=== PATIENT | male | born 1975 | race Caucasian/White ===

== ENCOUNTER 2021-08-14 15:14 | Emergency (ER) | payer OTHER ==
[2021-08-14 15:37] VITALS: BP 130/84; PULSE 89; RESP 20; TEMP 98
--- NOTE | 2021-08-14 16:00 | XR ---
EXAMINATION TYPE: XR chest 2V DATE OF EXAM: 08/14/2021 COMPARISON: NONE HISTORY: Chest pain TECHNIQUE: Frontal and lateral views of the chest are obtained. FINDINGS: There is no focal air space opacity, pleural effusion, or pneumothorax seen. The cardiac silhouette size is within normal limits. There is prominence of the lung volume and interstitium. Q uestion some bronchial wall thickening. The osseous structures are intact. IMPRESSION: There may be some underlying interstitial lung disease, correlate for bronchitis, reacti ve airways disease
[2021-08-14 16:01] LABS: Basophils # (A) 0.1 k/uL (0-0.2); Basophils % (A) 0 %; Eosinophils # (A) 0.4 k/uL (0-0.7); Eosinophils % (A) 3 %; HCT 51.2 % (39.0-53.0); HGB 17.3 gm/dL (13.0-17.5); Lymphocytes % (A) 15 %; MCH 29.8 pg (25.0-35.0); MCHC 33.8 g/dL (31.0-37.0); MCV 88.1 fL (80.0-100.0); Mean Platelet Volume 7.4; Monocytes # (A) 0.5 k/uL (0-1.0); Monocytes % (A) 3 %; Neutrophils # (A) 10.9 k/uL (1.3-7.7); Neutrophils % (A) 78 %; Platelet Count 274 k/uL (150-450); RBC 5.81 m/uL (4.30-5.90); RDW 14.2 % (11.5-15.5); WBC 13.9 k/uL (3.8-10.6)
--- NOTE | 2021-08-14 16:09 | ED ---
General Adult HPI - General Chief complaint: Chest Pain Stated complaint: Chest Pain,L arm pain Time Seen by Provider: 08/14/21 15:54 Source: patient, family, RN notes reviewed, old records reviewed Mode of arrival: ambulatory Limitations: no limitations - History of Present Illness Initial comments: 45-year-old male presenting for evaluation of multiple complaints. His main complaints are intermittent chest pain, left arm pain and associated numbness over the past one month. The symptoms began after the patient's son . He's been dealing with multiple issues related to this including some financial difficulties as well as she will planning. He does admit that he's anxious and believes that his symptoms are stemming from him his anxiety. He feels depressed and hopeless. He is not suicidal. He denies suicidal thoughts or suicide attempt - Related Data Home Medications Medication Instructions Recorded Confirmed ALPRAZolam [Xanax] 0.5 mg PO DAILY PRN 08/14/21 08/14/21 Testosterone 1 pump TOPICAL DAILY 08/14/21 08/14/21 Allergies Allergy/AdvReac Type Severity Reaction Status Date / Time No Known Allergies Allergy Verified 08/14/21 16:32 Review of Systems ROS Statement: Those systems with pertinent positive or pertinent negative responses have been documented in the HPI. ROS Other: All systems not noted in ROS Statement are negative. Past Medical History History of Any Multi-Drug Resistant Organisms: None Reported Past Surgical History: Tonsillectomy Past Psychological History: No Psychological Hx Reported Smoking Status: Current every day smoker Past Alcohol Use History: Occasional Past Drug Use History: None Reported General Exam Limitations: no limitations General appearance: alert, in no apparent distress Head exam: Present: atraumatic, normocephalic Eye exam: Present: normal appearance, PERRL ENT exam: Present: normal exam Neck exam: Present: normal inspection. Absent: tenderness Respiratory exam: Present: normal lung sounds bilaterally. Absent: respiratory distress, wheezes Cardiovascular Exam: Present: regular rate, normal rhythm GI/Abdominal exam: Present: soft. Absent: distended, tenderness, guarding Extremities exam: Present: normal inspection, normal capillary refill. Absent: pedal edema Neurological exam: Present: alert, oriented X3, CN II-XII intact, other (No weakness, NIH is 0). Absent: motor sensory deficit Psychiatric exam: Present: depressed, flat affect. Absent: suicidal ideation Skin exam: Present: warm, dry, intact. Absent: cyanosis, diaphoretic Course Vital Signs 08/14/21 15:27 Temperature 98.0 F Pulse Rate 89 Respiratory 20 Rate Blood Pressure 130/84 O2 Sat by Pulse 97 Oximetry - Reevaluation(s) Reevaluation #1: 08/14/21 16:57 Patient cleared for EPS. EKG Findings - EKG Comments: EKG Findings:: EKG: Normal sinus rhythm incomplete right bundle-branch block, rate of 86, OK interval 154, QRS duration 102, QTC [address] segment elevation. Medical Decision Making - Medical Decision Making 45-year-old male who had presented with several complaints over the past month. He feels that these are related to depression and anxiety. Workup is complaints including chest pain and her been arm numbness. Head CT is negative, chest x-ray negative for large focal pneumonia or acute findings, possibly some bronchitis. He has a mild leukocytosis, stable hemoglobin, normal electrolytes, negative troponin. His head CT is negative for intracranial hemorrhage or mass effect. I did have EPS evaluated this patient and he is not currently suicidal. He does agree to outpatient resources and contracts to safety. - Lab Data Result diagrams: 08/14/21 15:53 08/14/21 15:53 Lab Results 08/14/21 08/14/21 08/14/21 Range/Units 15:53 15:53 15:53 WBC 13.9 H (3.8-10.6) k/uL RBC 5.81 (4.30-5.90) m/uL Hgb 17.3 (13.0-17.5) gm/dL Hct 51.2 (39.0-53.0) % MCV 88.1 (80.0-100.0) fL MCH 29.8 (25.0-35.0) pg MCHC 33.8 (31.0-37.0) g/dL RDW 14.2 (11.5-15.5) % Plt Count 274 (150-450) k/uL MPV 7.4 Neutrophils % 78 % Lymphocytes % 15 % Monocytes % 3 % Eosinophils % 3 % Basophils % 0 % Neutrophils # 10.9 H (1.3-7.7) k/uL Lymphocytes # 2.0 (1.0-4.8) k/uL Monocytes # 0.5 (0-1.0) k/uL Eosinophils # 0.4 (0-0.7) k/uL Basophils # 0.1 (0-0.2) k/uL PT 10.0 (9.0-12.0) sec INR 0.9 (<1.2) APTT 23.4 (22.0-30.0) sec Sodium 139 (137-145) mmol/L Potassium 4.5 (3.5-5.1) mmol/L Chloride 110 H (98-107) mmol/L Carbon Dioxide 22 (22-30) mmol/L Anion Gap 7 mmol/L BUN 14 (9-20) mg/dL Creatinine 1.03 (0.66-1.25) mg/dL Est GFR (CKD-EPI)AfAm >90 (>60 ml/min/1.73 sqM) Est GFR (CKD-EPI)NonAf 87 (>60 ml/min/1.73 sqM) Glucose 84 (74-99) mg/dL Calcium 10.0 (8.4-10.2) mg/dL Magnesium 2.3 (1.6-2.3) mg/dL Total Bilirubin 0.6 (0.2-1.3) mg/dL AST 25 (17-59) U/L ALT 24 (4-49) U/L Alkaline Phosphatase 75 (38-126) U/L Troponin I (0.000-0.034) ng/mL Total Protein 7.0 (6.3-8.2) g/dL Albumin 4.3 (3.5-5.0) g/dL 08/14/21 Range/Units 15:53 WBC (3.8-10.6) k/uL RBC (4.30-5.90) m/uL Hgb (13.0-17.5) gm/dL Hct (39.0-53.0) % MCV (80.0-100.0) fL MCH (25.0-35.0) pg MCHC (31.0-37.0) g/dL RDW (11.5-15.5) % Plt Count (150-450) k/uL MPV Neutrophils % % Lymphocytes % % Monocytes % % Eosinophils % % Basophils % % Neutrophils # (1.3-7.7) k/uL Lymphocytes # (1.0-4.8) k/uL Monocytes # (0-1.0) k/uL Eosinophils # (0-0.7) k/uL Basophils # (0-0.2) k/uL PT (9.0-12.0) sec INR (<1.2) APTT (22.0-30.0) sec Sodium (137-145) mmol/L Potassium (3.5-5.1) mmol/L Chloride (98-107) mmol/L Carbon Dioxide (22-30) mmol/L Anion Gap mmol/L BUN (9-20) mg/dL Creatinine (0.66-1.25) mg/dL Est GFR (CKD-EPI)AfAm (>60 ml/min/1.73 sqM) Est GFR (CKD-EPI)NonAf (>60 ml/min/1.73 sqM) Glucose (74-99) mg/dL Calcium (8.4-10.2) mg/dL Magnesium (1.6-2.3) mg/dL Total Bilirubin (0.2-1.3) mg/dL AST (17-59) U/L ALT (4-49) U/L Alkaline Phosphatase (38-126) U/L Troponin I <0.012 (0.000-0.034) ng/mL Total Protein (6.3-8.2) g/dL Albumin (3.5-5.0) g/dL Disposition Clinical Impression: Stress reaction, Depression Disposition: HOME SELF-CARE Condition: Good Instructions (If sedation given, give patient instructions): Depression (ED) Is patient prescribed a controlled substance at d/c from ED?: No Referrals: None,Stated [Primary Care Provider] - 1-2 days Time of Disposition: 18:41
[2021-08-14 16:10] LABS: ALT 24 U/L (4-49); AST 25 U/L (17-59); African American GFR (CKD) >90 (>60 ml/min/1.73 sqM); Albumin 4.3 g/dL (3.5-5.0); Alkaline Phosphatase 75 U/L (38-126); Anion Gap 7 mmol/L; Blood Urea Nitrogen 14 mg/dL (9-20); Carbon Dioxide 22 mmol/L (22-30); Chloride 110 mmol/L (98-107); Glucose 84 mg/dL (74-99); Magnesium 2.3 mg/dL (1.6-2.3); Non-African American GFR(CKD) 87 (>60 ml/min/1.73 sqM); Potassium 4.5 mmol/L (3.5-5.1); Sodium 139 mmol/L (137-145); Total Bilirubin 0.6 mg/dL (0.2-1.3)
[2021-08-14 16:12] LABS: INR 0.9 (<1.2); Partial Thromboplastin Time 23.4 sec (22.0-30.0)
--- NOTE | 2021-08-14 16:31 | CT ---
EXAMINATION TYPE: CT brain wo con DATE OF EXAM: 08/14/2021 COMPARISON: None INDICATION: Left sided arm weakness and chest discomfort DLP: 1129.4 mGycm, Automated exposure control for dose reduction was used. CONTRAST: None CT of the brain is performed utilizing 3 mm thick sections through the posterior fossa and 3 mm thick sections through the remaining calvarium. Study is performed within 24 hours of arrival to the hosp ital. No abnormal hyperdensity is present to suggest an acute intracranial hemorrhage. No mass lesion is evident. No acute infarcts are evident. Ventricles and sulci are appropriate for the patient age. A retention cyst may be within the right maxillary sinus. Minimal mucosal thickening in the left maxi llary sinus. Mild mucosal thickening in anterior ethmoid air cells. A retention cyst is along the pos terior sphenoid sinus. Remaining paranasal sinuses and mastoid air cells are clear. IMPRESSIONS: 1. No acute intracranial process. 2. Mucosal thickening within paranasal sinuses discussed above.
== END 2021-08-14 18:58 | disposition home or self-care (01) ==
LOC: EC 15:14
DX: F43.9 Reaction to severe stress, unspecified (principal); F32.9 Major depressive disorder, single episode, unspecified; F17.200 Nicotine dependence, unspecified, uncomplicated; Z90.89 Acquired absence of other organs
CPT/HCPCS: 36415; 70450; 71046; 80053; 82075; 83735; 84484; 85025; 85610; 85730; 93005; 99285

== ENCOUNTER 2021-11-03 23:27 | Emergency (ER) | payer OTHER ==
[2021-11-03 23:33] VITALS: BP 125/86; PULSE 103; RESP 20; TEMP 98.3
[2021-11-04] MEDS ORDERED: SODIUM CHLORIDE 0.9% 50 ML IVPB ONE (00:15)
--- NOTE | 2021-11-04 00:22 | ED ---
URI HPI - General Chief Complaint: Upper Respiratory Infection Stated Complaint: JOAQUÍN, Covid+ Time Seen by Provider: 11/03/21 23:38 Source: patient, RN notes reviewed Mode of arrival: ambulatory Limitations: no limitations - History of Present Illness Initial Comments: patient is a 45-year-old male that presents to the emergency department Covid-positive for the past 5 days. He notes his had symptoms for 5 days tested +3 days ago. He notes he wants monoclonal antibodies. He notes he is having some cough. He denied any other issues or complaints. He does have a history of COPD. He denied chest pain headache nausea vomiting diarrhea constipation fever fatigue chills. - Related Data Home Medications Medication Instructions Recorded Confirmed ALPRAZolam [Xanax] 0.5 mg PO DAILY PRN 08/14/21 08/14/21 Testosterone 1 pump TOPICAL DAILY 08/14/21 08/14/21 Allergies Allergy/AdvReac Type Severity Reaction Status Date / Time No Known Allergies Allergy Verified 11/03/21 23:29 Review of Systems ROS Statement: Those systems with pertinent positive or pertinent negative responses have been documented in the HPI. ROS Other: All systems not noted in ROS Statement are negative. Past Medical History Past Medical History: COPD History of Any Multi-Drug Resistant Organisms: None Reported Past Surgical History: Tonsillectomy Past Psychological History: No Psychological Hx Reported Smoking Status: Current every day smoker Past Alcohol Use History: Occasional Past Drug Use History: None Reported General Exam Limitations: no limitations General appearance: alert, in no apparent distress Head exam: Present: atraumatic, normocephalic, normal inspection Eye exam: Present: normal appearance, PERRL, EOMI. Absent: scleral icterus, conjunctival injection, periorbital swelling ENT exam: Present: normal exam, mucous membranes moist Neck exam: Present: normal inspection Respiratory exam: Present: normal lung sounds bilaterally. Absent: respiratory distress, wheezes, rales, rhonchi, stridor Cardiovascular Exam: Present: regular rate, normal rhythm, normal heart sounds. Absent: systolic murmur, diastolic murmur, rubs, gallop, clicks GI/Abdominal exam: Present: soft, normal bowel sounds. Absent: distended, tenderness, guarding, rebound, rigid Extremities exam: Present: normal inspection, full ROM, normal capillary refill. Absent: tenderness, pedal edema, joint swelling, calf tenderness Neurological exam: Present: alert, oriented X3 Psychiatric exam: Present: normal affect, normal mood Skin exam: Present: warm, dry, intact, normal color. Absent: rash Course Vital Signs 11/03/21 23:29 Temperature 98.3 F Pulse Rate 103 H Respiratory 20 Rate Blood Pressure 125/86 O2 Sat by Pulse 99 Oximetry Medical Decision Making - Medical Decision Making 45 -year-oldmale Covid-positive wanting monoclonal advised. He does meet criteria to have a history of COPD. Patient is agreeable discharge home after infusion. Case discussed with Dr. Mccarthy, patient discharge home. Disposition Clinical Impression: COVID Disposition: HOME SELF-CARE Condition: Stable Instructions (If sedation given, give patient instructions): Coronavirus Disease 2019 (COVID-19) Additional Instructions: Please return to the Emergency Department if symptoms worsen or any other concerns. Is patient prescribed a controlled substance at d/c from ED?: No Referrals: Nonstaff,Physician [Primary Care Provider] - 1-2 days Time of Disposition: 00:22
[2021-11-04] MEDS ORDERED: BAMLANIVIMAB (EUA) 700 MG, ETESEVIMAB (EUA) 1,400 MG in SODIUM CHLORIDE 0.9% 100 ML IVPB ONE (00:30)
== END 2021-11-04 01:38 | disposition home or self-care (01) ==
LOC: EC 23:27
DX: U07.1 COVID-19 (principal); J44.9 Chronic obstructive pulmonary disease, unspecified; F17.200 Nicotine dependence, unspecified, uncomplicated
CPT/HCPCS: 99283; M0245

== ENCOUNTER 2025-01-07 13:31 | Inpatient (IN) | payer MEDICAID ==
[2025-01-07] MEDS ORDERED: LORazepam 2 MG/ML INJ IM PRN (13:50)
[2025-01-07] MEDS ORDERED: HALOPERIDOL LACTATE 5 MG/ML 1 ML VIAL IM PRN (13:50)
[2025-01-07] MEDS ORDERED: MAGNESIUM HYDROXIDE 2,400 MG/30 ML CUP PO PRN (13:50)
[2025-01-07] MEDS: MAG HYDROX/AL HYDROX/SIMETH 355 ML BOTTLE PO PRN (17:18)
[2025-01-07] MEDS: ACETAMINOPHEN TAB 325 MG TAB PO PRN (17:19)
[2025-01-07] MEDS: LORazepam 1 MG TAB PO PRN (17:25)
[2025-01-07] MEDS: haloperidoL 5 MG TAB PO PRN (17:25)
[2025-01-07] MEDS: LISINOPRIL-HCTZ 10-12.5 MG 1 EACH TAB PO SCH (21:54)
[2025-01-07] MEDS: OLANZapine 5 MG TAB PO SCH (21:54)
[2025-01-07] MEDS: SYMBICORT 80-4.5 MCG INHALER INHALATION SCH (21:54)
[2025-01-08] MEDS: NICOTINE 14MG/24HR PATCH TRANSDERM SCH (09:26)
--- NOTE | 2025-01-08 13:58 | P.HP ---
Psychiatric H&P - . H&P Date: 01/08/25 History & Physical: Allergies Allergy/AdvReac Type Severity Reaction Status Date / Time No Known Allergies Allergy Verified 11/03/21 23:29 Vital Signs Temp 97.1 F L 01/08/25 09:58 Pulse 83 01/08/25 09:58 Resp 20 01/08/25 09:58 BP 106/67 01/08/25 09:58 Pulse Ox 97 01/07/25 22:58 FiO2 Intake & Output 01/07/25 01/08/25 01/08/25 18:59 06:59 18:59 Weight 89.358 kg 01/08/25 11:44 the patient came in with a petition and certification by his daughter. The daughter says "my dad is threatened to kill himself along with his ex- girlfriend. He has arrested me and my brother via phone for the past 3 months. He is homeless and a huge danger to himself and others. He has suicidal thoughts kill threats harassment. His ex-girlfriend has appeared by mouth on him in [place] then there is a certain that says patient's daughter reports patient been telling family his going to kill himself and then observed patient labile no other observations from the doctor. the chart records thatpatient was found to have a machete and a gun in his car which he says was for self protection.family members and others to present evidence of emails that were threatening. Subjective the patient says that he is a man of [place] and although all he has not found a anabaptism to attend in [place] he does watch his anabaptism services on his phone from [place]. He says God would not let him kill himself or hurt a nyone else. He admits that he is depressed about his son who at age 19. The son was hit head-on in a car accident. But the patient points out that it has been 2 years and he has been improving his ability to deal with. He says he takes Prozac which was increased from 20-40 about 2 months ago he believes that has helped. He also takes olanzapine 5 mg a positive about its contribution to helping him with his moods he has an outpatient doctor established and is willing to keep taking the medications. He says yes he has been staying in his car but he has a friend that he can go and stay with them until he can get on his feet. 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 He denies a use of any alcohol or drugs he admits to smoking some cigarettes but says he has cut way back and that. He denies now or in the past any hallucinations or any visual or auditory hallucinations or delusions. He denies any manic episodes. Social history the patient says that he is oldest of 2 boys born to his parents his younger brother who is doing well says his parents stayed together although there were somewhat troubled mom at age 44 cancer and dad have some heart problems and his castaneda. The patient says that he had a normal and early development as far as his mom said that he finished 12th grade and now is working on his CDL is no history no legal history. He was for 10 years and had 2 children with her a 26-year-old and then the son who he said his became with a neighbor and yes it still upsets him he also is a 29-year-old daughter with 3 children who is doing well. Mental status exam the patient is alert and cooperative somewhat somatically focused on feeling dizzy. He does not want to be here and says he doesn't feel that he needs to be in a psychiatric unit. He says that any parent would sometimes voice the thought that if something did happen and if they it would be nice to see their lost relative. He denies any thoughts or plans of making that happen on his own. He denies talking to his daughter in the last 3 months but admits to leaving messages. At the same time his affect breaks into tearfulness when he talks about his son and his moods are labile He could remember 3 of 3 objects after 5 minutes. His general information is well above average he could name the presidents back to the elder Gilli[place]. He could name all the [place] and had a good idea where they were. Cats and snakes he has are sneaky and they shed, he could not subtract 7 from 93 he got 88 and he could not spell world backwards we has some trouble with concentration he tried going got DL ORW. Abstract is okay he abstracted the proverb a ggressive screen and outside offense by saying make improvements in your own area. Self-care is adequate eye contact is good he does tear up when he is talking about his son. His alert oriented to person place time and circumstances. He was sitting in a wheelchair due to the dizziness. There is no evidence of psychosis he did not seem to be responding to voices. He was not agitated or aggressive. Assessment: diagnosis major depression recurrent severe nonpsychotic. At this point in examining the patientexamining the chart and talking to people who evaluated him.there seems to be a big discrepancy between his report and what others say. But their report combined with his emotional lability suggests that he is a danger to himself and others. Plan: because of the gun in the car the email threats reported by daughter and ex- and other people that know him and emotional lability I think we need to keep him in the hospital and observe at least briefly and then taken to court to have them decide. If he goes to group remains calm and we can contact support people but this point I think it would be too dangerous. We will continue the Prozac and the Zyprexa.
[2025-01-08] MEDS: PANTOPRAZOLE 40 MG TABLET PO SCH (14:48)
--- NOTE | 2025-01-08 14:53 | XR ---
EXAMINATION TYPE: XR abdomen acute w cxr DATE OF EXAM: 01/08/2025 2:46 PM CLINICAL INDICATION: Male, 49 years old with history of left upper quadrant pain, and reports felt a pop; H COMPARISON: Chest 08/14/2021. TECHNIQUE: Two radiographic views of the abdomen (upright and supine) and a frontal chest radiograph were obtained. FINDINGS CHEST: Lungs/Pleura: The lungs are clear. There is no evidence of pleural effusion, focal consolidation or p neumothorax. Mediastinum: Unremarkable. Vasculature: Normal. Heart: Normal in size. Musculoskeletal: The osseous structures are intact. Other findings: No significant. FINDINGS ABDOMEN: Bowel gas pattern: Normal without dilated loops of small or large bowel. Moderate volume fecal materi al and gas are demonstrated throughout the colon and rectum. Abnormal calcifications: None. Musculoskeletal: Normal. Other: None. IMPRESSION: 1. No radiographic evidence for acute abdominal process. Moderate diffuse colonic stool burden. 2. No acute cardiopulmonary process [facility], Workstation: [email or web address], 01/08/2025 2:51 PM
[2025-01-08] MEDS: ALBUTEROL INHALER 60 PUFF/8 GM INHALER (MHU) INHALATION PRN (15:51)
[2025-01-08] MEDS: IBUPROFEN 600 MG TAB PO PRN (22:46)
[2025-01-08] MEDS ORDERED: LACTULOSE 20 GM/30 ML CUP PO PRN (23:46)
--- NOTE | 2025-01-08 23:59 | P.MDCNMH ---
History of Present Illness H&P Date: 01/08/25 This is a pleasant 49-year-old male who presented to the emergency department on petition from daughter with concerns of being a threat to himself or others. Patient was noted to have a machete and a gun in his vehicle of which he reports was for his own safety. Patient has been making comments and threats per family about wanting to kill himself. On exam patient denies this and does elicit that he is depressed. Patient is admitted to [facility] for further psychiatric evaluation. Patient reports he follows with Dr. Smith in the outpatient setting with a past medical history of COPD, depression, hypertension, anxiety. Patient is a former smoker and denies any other illicit drug use or alcohol use. On exam patient is reporting severe left upper quadrant abdominal pain. Concerns for constipation and will order abdominal x-ray for further evaluation. REVIEW OF SYSTEMS: CONSTITUTIONAL: No fever, no malaise, no fatigue. HEENT: No recent visual problems or hearing problems. Denied any sore throat. CARDIOVASCULAR: No chest pain, orthopnea, PND, no palpitations, no syncope. PULMONARY: No shortness of breath, no cough, no hemoptysis. GASTROINTESTINAL: No diarrhea, no nausea, no vomiting, reports significant abdominal pain. NEUROLOGICAL: No headaches, no weakness, no numbness. HEMATOLOGICAL: Denies any bleeding or petechiae. GENITOURINARY: Denies any burning micturition, frequency, or urgency. MUSCULOSKELETAL/RHEUMATOLOGICAL: Denies any joint pain, swelling, or any muscle pain. ENDOCRINE: Denies any polyuria or polydipsia. The rest of the 14-point review of systems is negative. PHYSICAL EXAMINATION: GENERAL: The patient is alert and oriented x3, appears to be in mild acute distress due to abdominal discomfort. Well developed, well nourished. Appears older than stated age HEENT: Pupils are round and equally reacting to light. EOMI. No scleral icterus. No conjunctival pallor. Normocephalic, atraumatic. No pharyngeal erythema. No thyromegaly. CARDIOVASCULAR: S1 and S2 present. No murmurs, rubs, or gallops. PULMONARY: Diminished breath sounds bilaterally otherwise chest is clear to auscultation, no wheezing or crackles. ABDOMEN: Soft, left upper quadrant tenderness noted, nondistended, normoactive bowel sounds. No palpable organomegaly. MUSCULOSKELETAL: No joint swelling or deformity. EXTREMITIES: No cyanosis, clubbing, or pedal edema. NEUROLOGICAL: Gross neurological examination did not reveal any focal deficits. SKIN: No rashes. Assessment: Depression with suicidal ideation on petition History of asthma/COPD, not in exacerbation Abdominal pain, imaging reports some moderate stool burden, likely secondary to constipation Former smoker History of hypertension History of anxiety/depression GI prophylaxis Full code Plan: Patient was petitioned and admitted to [facility] for further psychiatric evaluation as patient was petition by family reporting he is not safe to himself or others and has made multiple comments to them about killing himself and also threatening comments. Patient denies these and denies any suicidal ideation. Patient reports he is severely depressed but does not want to kill himself Patient instructed to be compliant with medications along with therapy sessions and psychiatric evaluation Patient instructed to follow-up with his primary care provider in the outpatient setting Patient having severe abdominal pain in the left upper quadrant, x-ray obtained showing no acute cardiopulmonary process and moderate stool burden of the abdomen. Will add Senokot and also lactulose as needed and recommend bowel regimen Encouraged increase activity as tolerated The impression and plan of care has been dictated by Gladys Bright, Nurse Practitioner as directed. Dr. Lucrecia MD I have performed a history and examination and MDM of this patient, discussed the same with the dictator, and agree with the dictator's assessment and plan as written ,documented as a scribe. Based on total visit time, I have performed more than 50% of the visit. Past Medical History Past Medical History: Asthma, COPD, Hypertension History of Any Multi-Drug Resistant Organisms: None Reported Past Surgical History: Tonsillectomy Past Anesthesia/Blood Transfusion Reactions: No Reported Reaction Smoking Status: Former smoker Medications and Allergies Home Medications Medication Instructions Recorded Confirmed Type FLUoxetine HCL [PROzac] 40 mg PO HS 01/07/25 01/07/25 History Fluticasone Propion/Salmeterol 1 puff INHALATION BID 01/07/25 01/07/25 History [Advair 250-50 Diskus] Lisinopril-Hctz 10-12.5 mg 1 tab PO HS 01/07/25 01/07/25 History [Zestoretic 10-12.5] OLANZapine [ZyPREXA] 5 mg PO HS 01/07/25 01/07/25 History Allergies Allergy/AdvReac Type Severity Reaction Status Date / Time No Known Allergies Allergy Verified 11/03/21 23:29 Physical Exam Vitals: Vital Signs Temp Pulse Resp BP Pulse Ox 01/07/25 22:58 97.7 F 98 14 110/74 97 01/07/25 14:43 97.9 F 103 H 14 119/79 99 Cranial Nerve Examination - Cranial Nerves Cranial Nerve I- Olfactory: Intact Cranial Nerve II- Optic: Intact Cranial Nerve III- Oculomotor: Intact Cranial Nerve IV- Trochlear: Intact Cranial Nerve V- Trigeminal: Intact Cranial Nerve - Abducens: Intact Cranial Nerve VII- Facial: Intact Cranial Nerve VIII- Auditory: Intact Cranial Nerve IX- Glossopharyngeal: Intact Cranial Nerve X- Vagus: Intact Cranial Nerve XI- Accessory: Intact Cranial Nerve XII- Hypoglossal: Intact
[2025-01-09] MEDS: SENNOSIDES 8.6 MG TAB PO SCH (09:29)
[2025-01-09] MEDS: FLUoxetine HCL 20 MG CAP PO SCH (09:29)
--- NOTE | 2025-01-09 10:20 | P.PN ---
Subjective Progress Note Date: 01/09/25 Principal diagnosis: major depression recurrent severe nonpsychotic the patient: The patient was seen lying in bed at 10:30 in the morning with a blanket over his head. He refused to get up and talk to me saying known time he wanted talk to somebody is if they were letting him be discharged. He said he didn't understand why he couldn't just leave. nursing staff report that he is withdrawn slow-moving uncooperative sad affect. Mental status exam the patient appears to have no insight into how other people would interpret his behavior. His affect is still sad and he is somewhat irritable no psychotic symptoms. He is uncooperative. I encouraged him to get out of bed goes on the groups and established that he was doing as well has he said he is. Energy is low. He denies now or in the past any hallucinations or any visual or auditory hallucinations or delusions. He denies any manic episodes.he denies any suicidality or homicidality Assessment: diagnosis major depression recurrent severe nonpsychotic.still quite depressed and lacking in insight. At this point in examining the patient, examining the chart and talking to people who evaluated him.there seems to be a big discrepancy between his report and what others say. But their report combined with his emotional lability suggests that he is a danger to himself and others. Plan: because of the gun in the car the email threats reported by daughter and ex-wifeand documented by staff and other people that know him and emotional lability I think we need to keep him in the hospital and observe at least briefly and then taken to court to have them decide. he has not responded in a rational way by going to the groups is I suggested and demonstrating that he is fine. We will continue the Prozac and the Zyprexa. Objective - Vital Signs Vital signs: Vital Signs Temp 97.9 F 01/08/25 22:44 Pulse 84 01/09/25 09:35 Resp 16 01/08/25 22:44 BP 108/68 01/09/25 09:35 Pulse Ox 97 01/08/25 22:44 FiO2
[2025-01-09] MEDS: NICOTINE GUM (POLACRILEX) 2 MG GUM BUCCAL PRN (13:58)
[2025-01-10 16:52] LABS: Chol/HDL Ratio 5.15 Ratio; LDL Cholesterol,Calculated 108.9 mg/dL (0.0-131.0)
--- NOTE | 2025-01-10 20:06 | P.PN ---
Progress Note - Text Progress Note Date: 01/10/25 Interval history: Patient was seen today in cross-coverage for Dr. Castrejon. Patient was found resting in bed with wheelchair at bedside and was agreeable to speak with this teletypewriter installer in his room. Today he claims his mood is "Great!", denies SI/HI intent or plan, denies AVH. He reports compliance with his medications and denies side effects. He is hopeful for discharge and asks repeatedly for discharge this evening, however we discussed discharge plans will need to be discussed with his primary team tomorrow. Review of chart shows he was intermittently agitated yesterday and required Haldol 5 mg po x 2 yesterday, and has not required any Haldol PRN for agitation so far today. He required Ativan 1 mg po x1 so far today for high anxiety, and required Ativan 1 mg po x 2 yesterday. Per chart, he has been sleeping through the night. Per nurse reports, he continues to be withdrawn and isolates to his room, does not interact with peers much. He has not attended groups today. He appears to be demonstrating defense mechanisms of denial and minimization, and appears to lack insight into the severity of his symptoms and the disconnect between his self-report and reports of staff regarding his withdrawn/isolative behaviors. Mental Status Exam: General Appearance: Patient appears to be stated age, seated on his bed with wheelchair at bedside, dressed incasual attire. Behavior: Patient appears eager to impress in hopes of discharge. He is fixated on discharge tonight. Speech: Patient's speech is fluent and non-pressured. Mood/Affect: Claims his mood is "great!", affect is congruent and constricted. Suicidality/Homicidality: Patient denies having any suicidal or homicidal ideation intent or plan. Perceptions: Patient denies any visual hallucinations and denies any auditory hallucinations. Though content/process: There is no evidence of any delusional thought content and thought process is fixated on discharge/anxious. Memory and concentration: AOX3, grossly intact for the purposes of this session Judgment and insight: Poor Assessment Major depressive disorder, severe without psychosis Plan: -Patient continues to meet criteria for inpatient psychiatric admission for symptom stabilization and safety. He is currently admitted on involuntary status and a second certification was submitted to the courts. -Medications: Continue Zyprexa 5mg QHS and Prozac 40 mg daily for depression and mood stabilization, and continue to monitor response. -When necessary Ativan and Haldol for agitation/aggression. -NRT - nicotine patch and gum -SW on board for discharge planning. Encourage the patient to participate in milieu. Will await court deferral hearing.
--- NOTE | 2025-01-11 13:52 | P.PN ---
Progress Note - Text Progress Note Date: 01/11/25 Interval history: Patient was seen today for psychiatric follow up. Patient was agreeable to be seen in the office today. Patient continues to appear to have a disheveled appearance poor hygiene and grooming. Claims that he is doing a bit better today with guards of his mood. He was minimizing his need for being in the hospital, claims that he did not say what was stated on the petition. Met with the state attorney today agreeable for treatment and medications. He was fairly focused on discharge today. 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 Claims that he is going to some groups. Has been eating fairly. Has been sleeping fairly well throughout the night. Denies any auditory or visual hallucinations denies any suicidal homicidal ideations intent or plan. Mental Status Exam: General Appearance: Patient appears to be stated age, seated on his bed with wheelchair at bedside, dressed incasual attire. Behavior: Patient appears eager to impress in hopes of discharge. He is fixated on discharge, minimizing Speech: Patient's speech is fluent and non-pressured. Mood/Affect: Claims his mood is "a bit better", affect is congruent and constricted. Suicidality/Homicidality: Patient denies having any suicidal or homicidal ideation intent or plan. Perceptions: Patient denies any visual hallucinations and denies any auditory hallucinations. Though content/process: There is no evidence of any delusional thought content and thought process, focused on discharge. minimizing Memory and concentration: AOX3, grossly intact for the purposes of this session Judgment and insight: Poor, improving mildly Assessment: Major depressive disorder, severe without psychosis Continue dependence Plan: -Patient continues to meet criteria for inpatient psychiatric admission for symptom stabilization and safety. -Medications: Zyprexa 5mg QHS, increase Prozac 60 mg daily for depression and mood stabilization, and continue to monitor response. -When necessary Ativan and Haldol for agitation/aggression. -NRT - nicotine patch and gum -SW on board for discharge planning. Encourage the patient to participate in milieu. patient deferred on 01/11 with his state attorney. likely discharge in 2-3 days once patient is improving psychiatrically.
[2025-01-12] MEDS: FLUoxetine HCL 20 MG CAP PO SCH (08:27)
--- NOTE | 2025-01-12 10:13 | P.PN ---
Progress Note - Text Progress Note Date: 01/12/25 Interval history: Patient was seen today for psychiatric follow up. Patient was seen taking part in group today. Claims that he is doing a bit better today, was more pleasant today with mortgage or loan underwriter. States that he feels his mood and anxiety been improving. Claims that at nighttime he gets more anxious, claims that he had to take a Ativan and also Haldol as needed last night to help him sleep. States that he is feeling more well rested today and more optimistic. We spoke briefly about discharge planning. Claims that he can stay with a friend upon discharge. Claims that he is going to some groups. Has been eating fairly. Denies any auditory or visual hallucinations denies any suicidal homicidal ideations intent or plan. Mental Status Exam: General Appearance: Patient appears to be stated age, seated on his bed with wheelchair at bedside, dressed incasual attire. Behavior: Patient appears eager to impress in hopes of discharge. More cooperative today Speech: Patient's speech is fluent and non-pressured. Mood/Affect: Claims his mood is "better", affect is congruent and improving Suicidality/Homicidality: Patient denies having any suicidal or homicidal ideation intent or plan. Perceptions: Patient denies any visual hallucinations and denies any auditory hallucinations. Though content/process: There is no evidence of any delusional thought content and thought process, less focused on discharge. More optimistic Memory and concentration: AOX3, grossly intact for the purposes of this session Judgment and insight: improving mildly Assessment: Major depressive disorder, severe without psychosis Continue dependence Plan: -Patient continues to meet criteria for inpatient psychiatric admission for symptom stabilization and safety. -Medications: Increase Zyprexa 7.5mg QHS, Prozac 60 mg daily for depression and mood stabilization, added trazodone 50 mg nightly as needed for insomnia. -When necessary Ativan and Haldol for agitation/aggression. -NRT - nicotine patch and gum -SW on board for discharge planning. Encourage the patient to participate in milieu. patient deferred on 01/11 with his divorce attorney. likely discharge tomorrow if patient is improving psychiatrically.
[2025-01-12] MEDS: traZODone HCL 50 MG TAB PO PRN (20:02)
[2025-01-12] MEDS: OLANZapine 2.5 MG TAB PO SCH (20:03)
[2025-01-13 09:17] VITALS: BP 94/66; PULSE 102; RESP 20; TEMP 97.2
--- NOTE | 2025-01-13 11:01 | P.DS ---
Providers Date of admission: 01/07/25 13:53 Expected date of discharge: 01/13/25 Attending physician: Blayne Castrejon MD Consults: 01/07/25 13:50 Consult Physician Routine Consulting Provider: [facility] Consult Reason/Comments: H&P and medical Do you want consulting provider notified?: Yes Primary care physician: Tarun Sewell Kut - Discharge Diagnosis(es) (1) Major depressive disorder, recurrent severe without psychotic features Current Visit: Yes Status: Acute Priority: High (2) Nicotine dependence Current Visit: Yes Status: Acute Priority: Low Hospital Course: Admission HPI: Admission note was completed by Dr Landin "the patient came in with a petition and certification by his daughter. The daughter says "my dad is threatened to kill himself along with his ex-girlfriend. He has arrested me and my brother via phone for the past 3 months. He is homeless and a huge danger to himself and others. He has suicidal thoughts kill threats harassment. His ex-girlfriend has appeared by mouth on him in [place] then there is a certain that says patient's daughter reports patient been telling family his going to kill himself and then observed patient labile no other observations from the doctor. the chart records thatpatient was found to have a machete and a gun in his car which he says was for self protection.family members and others to present evidence of emails that were threatening. Subjective the patient says that he is a man of [place] and although all he has not found a yarsani to attend in [place] he does watch his yarsani services on his phone from [place]. He says God would not let him kill himself or hurt anyone else. He admits that he is depressed about his son who at age 19. The son was hit head-on in a car accident. But the patient points out that it has been 2 years and he has been improving his ability to deal with. He says he takes Prozac which was increased from 20-40 about 2 months ago he believes that has helped. He also takes olanzapine 5 mg a positive about its contribution to helping him with his moods he has an outpatient doctor established and is willing to keep taking the medications. He says yes he has been staying in his car but he has a friend that he can go and stay with them until he can get on his feet. He says he has been taking his [employer] class and only had one more class to take and then he would graduate and be able to get his [employer] job. He denies a use of any alcohol or drugs he admits to smoking some cigarettes but says he has cut way back and that. He denies now or in the past any hallucinations or any visual or auditory hallucinations or delusions. He denies any manic episodes." Hospital course: Upon admission to the unit patient was directable and agreeable to commence treatment and signed adult voluntary form. Patient was initially depressed however with time and treatment patient got along well with other patients on the unit and followed unit protocol. Patient was compliant with the medications and denied any side effects throughout hospital course. Patient was started on his home dose of Zyprexa increased to a dose of 7.5 mg nightly for mood stabili zation/adjunct/sleep, Prozac 60 mg daily for mood/anxiety, trazodone nightly as needed for insomnia. Patient spoke of his stressors and engaged in therapy both group/activity therapy. Patient was also seen by medical team for history and physical exam. Throughout the course of the hospitalization patient gradually improved with regards to mood, anxiety, sleep and became more future oriented wi th improved insight and judgment. On the day of discharge patient denied any suicidal or homicidal ideations intent or plan denied any auditory or visual hallucinations. Patient endorsed wanting to live for their health and family. The patient denied any access to guns or weapons. Patient denied any paranoia and did not endorse any delusions. Patient does not have a significant history of substance abuse and was counseled on abstaining from all substances including alcohol and marijuana. Patient was also counseled on the medications and need for regular compliance and was encouraged to follow-up with their outpatient appointment for mental health and also for primary care. Prior to discharge a family meeting will be arranged by older adult social work specialist to answer any questions and ensure safety upon discharge incuding making sure that guns/weapons are either removed from the home or locked away. 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 Mental status exam: General Appearance: Patient appears to be tall, balding, stated age is alert, pleasant, and cooperative. Patient is in no acute distress and has improved hygiene and grooming Behavior: Patient is calmly seated without any agitated behavior. Speech: Patient's speech is fluent and nonpressured. Mood/Affect: Patient reports their mood is "good", affect is congruent and euthymic. Suicidality/Homicidality: Patient denies having any suicidal or homicidal ideation intent or plan. Perceptions: Patient denies any auditory or visual hallucinations. Though content/process: There is no evidence of any delusional thought content and thought process is linear and goal-directed. More future oriented Memory and concentration: AOX3, grossly intact for the purposes of this session. Can spell "WORLD" backwards correctly. Judgment and insight: improved with guarded prognosis Impression: Major depressive disorder without psychotic features Nicotine dependence Plan: -Continue with discharge today as patient has improved and stabilized psychiatrically and is not currently an imminent threat to themself and/or others. -Continue medications: Zyprexa 7.5 mg nightly for mood stabilization/adjunct/sleep, Prozac 60 mg daily for mood/anxiety, trazodone 50- 100 mg nightly as needed for insomnia -Patient was counseled on the need for medication compliance and appropriate follow-up at mental health and also primary care for medical issues. Patient verbalized understanding and agreed. -Social work to help coordinate patients discharge today. also to ensure safe home environment that guns/weapons are either removed from the home or locked away. Social work also to arrange for patients follow up appointments with [facility] for psychiatric care along with follow up with primary care provider. -Patient counseled on abstaining from recreational drugs and marijuana and alcohol. Was informed/educated on the adverse effects on their physical and mental health. Patient verbally agreed and understood. -Patient was instructed to return to the hospital or seek immediate medical care if their psychiatric or medical symptoms do worsen or reoccur. Allergies Allergy/AdvReac Type Severity Reaction Status Date / Time No Known Allergies Allergy Verified 11/03/21 23:[address] Glu mg/dL 137 mg/dL 01/10/25 10:01 Hemoglobin A1c 6.4 % (<=6.0) H 01/10/25 10:01 Triglycerides 217.00 mg/dL (0.00-149.00) H 01/10/25 10:01 Cholesterol 189.00 mg/dL (0.00-200.00) 03/03/25 10:01 LDL Cholesterol, Calc 108.9 mg/dL (0.0-131.0) 01/10/25 10:01 VLDL Cholesterol, Calc 43.40 mg/dL (5.00-40.00) H 01/10/25 10:01 HDL Cholesterol 36.70 mg/dL (40.00-60.00) L 01/10/25 10:01 Cholesterol/HDL Ratio 5.15 Ratio 01/10/25 10:01 TSH 2.570 mIU/L (0.465-4.680) 01/10/25 10:01 Vital Signs Temp 97.2 F L 01/13/25 09:16 Pulse 102 H 01/13/25 09:16 Resp 20 01/13/25 09:16 BP 94/66 01/13/25 09:16 Pulse Ox 98 01/13/25 09:16 FiO2 Patient Condition at Discharge: Stable Plan - Discharge Summary Discharge Rx Participant: No New Discharge Prescriptions: New Pantoprazole [Protonix] 40 mg PO AC-BRKFST tab Sennosides [Senokot] 8.6 mg PO BID tab Albuterol Inhaler [Ventolin Hfa Inhaler] 2 puff INHALATION RT-QID PRN 30 Days #1 each PRN Reason: Shortness Of Breath Or Wheezing Nicotine 14Mg/24Hr Patch [Habitrol] 1 patch TRANSDERM DAILY 14 Days #14 patch Ibuprofen [Motrin] 600 mg PO Q6HR PRN tab PRN Reason: Moderate Pain (Scale 4 To 6) Nicotine Gum (Polacrilex) [Nicorette] 2 mg BUCCAL Q4HR PRN pieceofgum PRN Reason: Nicotine Cravings FLUoxetine HCL [PROzac] 60 mg PO DAILY 30 Days #90 cap traZODone HCL 50 - 100 mg PO HS PRN 30 Days #30 tablet PRN Reason: Insomnia OLANZapine [ZyPREXA] 7.5 mg PO HS 30 Days #30 tab Continue Lisinopril-Hctz 10-12.5 mg [Zestoretic 10-12.5] 1 tab PO HS 30 Days #30 tab Changed Fluticasone Propion/Salmeterol [Advair 250-50 Diskus] 1 - 2 puff INHALATION BID 30 Days #1 each Discontinued OLANZapine [ZyPREXA] 5 mg PO HS FLUoxetine HCL [PROzac] 40 mg PO HS Discharge Medication List Albuterol Inhaler [Ventolin Hfa Inhaler] 2 puff INHALATION RT-QID PRN 30 Days #1 each 01/13/25 [Rx] FLUoxetine HCL [PROzac] 60 mg PO DAILY 30 Days #90 cap 01/13/25 [Rx] Fluticasone Propion/Salmeterol [Advair 250-50 Diskus] 1 - 2 puff INHALATION BID 30 Days #1 each 01/13/25 [Rx] Ibuprofen [Motrin] 600 mg PO Q6HR PRN tab 01/13/25 [Rx] Lisinopril-Hctz 10-12.5 mg [Zestoretic 10-12.5] 1 tab PO HS 30 Days #30 tab 01/13/25 [Rx] Nicotine 14Mg/24Hr Patch [Habitrol] 1 patch TRANSDERM DAILY 14 Days #14 patch 01/13/25 [Rx] Nicotine Gum (Polacrilex) [Nicorette] 2 mg BUCCAL Q4HR PRN pieceofgum 01/13/25 [Rx] OLANZapine [ZyPREXA] 7.5 mg PO HS 30 Days #30 tab 01/13/25 [Rx] Pantoprazole [Protonix] 40 mg PO AC-BRKFST tab 01/13/25 [Rx] Sennosides [Senokot] 8.6 mg PO BID tab 01/13/25 [Rx] traZODone HCL 50 - 100 mg PO HS PRN 30 Days #30 tablet 01/13/25 [Rx] Follow up Appointment(s)/Referral(s): [facility] [Outside] - 01/20/25 11:00 am (01/20 at 11am with Eldon Wilkinson 01/21 at 8:30am with Dr. Polo) Tarun Smith [Primary Care Provider] - 1 Week Patient Instructions/Handouts: Depression (ED) Activity/Diet/Wound Care/Special Instructions: [facility] Discharge Info Avoid the use of street drugs and alcohol. Take all medications as prescribed. When you are in need of refills on your medications, please contact your outpatient medical provider and/or outpatient psychiatrist. Please go to your scheduled outpatient appointments for aftercare treatment. If symptoms return or become worse, call the crisis line at or and/or visit the nearest emergency room for assistance. National Suicide and Crisis Lifeline - call or text 988 Discharge Disposition: HOME SELF-CARE
== END 2025-01-13 11:27 | disposition home or self-care (01) | DRG 751 ==
LOC: 3MHU 13:53
PROVIDERS: ADMIT Psychiatry & Neurology Psychiatry; ATTEND Psychiatry & Neurology Psychiatry
DX: F33.2 Major depressive disorder, recurrent severe without psychotic features (principal); F17.200 Nicotine dependence, unspecified, uncomplicated; F41.9 Anxiety disorder, unspecified; I10 Essential (primary) hypertension; J44.89 Other specified chronic obstructive pulmonary disease; K59.00 Constipation, unspecified; R45.851 Suicidal ideations; Z59.00 Homelessness unspecified; Z79.899 Other long term (current) drug therapy
CPT/HCPCS: 74022; 80061; 83036; 84443